=== PATIENT | male | born 1955 | race Caucasian/White ===

== ENCOUNTER 2023-09-26 14:54 | Emergency (ER) | payer MEDICARE, OTHER ==
[2023-09-26 16:09] LABS: #Basophils 0.1 10x3/uL (0.0-0.2); #Eosinphils 0.1 10x3/uL (0.0-0.5); #Monocytes 0.9 10x3/uL (0.0-1.1); #Neutrophils 14.9 10x3/uL (1.5-8.4); %Basophils 0.4 % (0.0-2.0); %Eosinophils 0.7 % (0.0-6.0); %Lymphocytes 3.8 % (18.0-47.0); %Monocytes 5.5 % (0.0-10.0); %Neutrophils 89.1 % (40.0-75.0); Hematocrit 38.3 % (38.8-50.0); Hemoglobin 12.6 g/dL (13.5-17.5); Mean Corpuscular HGB CONC 32.9 g/dL (32.0-36.0); Mean Corpuscular Volume 85.1 fl (81.2-95.1); Mean Platelet Volume 11.6 fl (7.4-10.4); Platelet Count 205 10x3/uL (150-450); RBC Distribution Width 15.1 % (11.5-14.5); White Blood Cell (WBC) Count 16.8 10x3/uL (3.5-10.5)
[2023-09-26 16:42] LABS: ALT (SGPT) 18 U/L (8-55); AST (SGOT) 29 U/L (5-34); Albumin 4.7 g/dL (3.4-4.8); Alkaline Phosphatase 135 U/L (40-110); Anion Gap 16 mmol/L (10-20); BUN (Urea Nitrogen) 13 mg/dL (8.4-25.7); Bilirubin, Total 0.5 mg/dL (0.2-1.2); Calc. Creatinine Clearance 0 mL/min (70-130); Calcium 9.1 mg/dL (7.8-10.44); Carbon Dioxide 25 mmol/L (23-31); Estimated GFR 67; Globulin 2.7 g/dL (2.4-3.5); Glucose 295 mg/dL (80-115); Magnesium 1.3 mg/dL (1.6-2.6); Potassium 4.3 mmol/L (3.5-5.1); Protein, Total 7.4 g/dL (5.8-8.1)
[2023-09-26 16:49] LABS: Troponin I 0.037 ng/mL (< 0.028)
[2023-09-26 16:54] LABS: Chloride 100 mmol/L (98-107); Sodium 137 mmol/L (136-145)
[2023-09-26 17:14] LABS: SARS-CoV-2 NAA Rapid Test Not Detected (NotDetected)
[2023-09-26] MEDS ORDERED: Magnesium 2 GM/50 ML BAG (IN WATER) ONE (17:19)
[2023-09-26] MEDS ORDERED: Vancomycin 1 GM VIAL ONE (17:19)
[2023-09-26] MEDS ORDERED: Cefepime 2 GM VIAL ONE (17:19)
[2023-09-26 17:50] LABS: Bilirubin Neg (Negative); Blood, Urine Negative (Negative); Clarity Clear (Clear); Glucose, Urine (Dipstick) Normal (Negative); Ketone, Urine Negative (Negative); Leukocyte Negative (Negative); Nitrite Negative (Negative); Protein, Urine (Dipstick) 30 mg/dl (Neg-Trace); Specific Gravity, Urine 1.015 (1.005-1.030); Urobilinogen Normal mg/dL (Less than 2)
[2023-09-26 18:22] LABS: Bacteria/HPF 1+ HPF (None Seen); CAUTI Indications for Culture Dysuria,urgency,freq; Mucous/LPF Rare LPF (<2+); RBC/HPF 0-3 HPF (0-3); Squamous Epithelial 0-3 HPF (0-3); WBC/HPF 0-3 HPF (0-3)
[2023-09-26 18:24] LABS: Urine Culture Reflex No No
[2023-09-26 19:42] LABS: Lactic Acid 2.7 mmol/L (0.5-2.2)
[2023-09-26 19:52] LABS: Troponin I 0.064 ng/mL (< 0.028)
== END 2023-09-27 02:30 | disposition short-term general hospital (02) ==
LOC: CSHERS 14:54
DX: A41.9 Sepsis, unspecified organism (principal); R79.89 Other specified abnormal findings of blood chemistry; J43.9 Emphysema, unspecified; E11.40 Type 2 diabetes mellitus with diabetic neuropathy, unspecified; I10 Essential (primary) hypertension; E11.65 Type 2 diabetes mellitus with hyperglycemia; Z87.891 Personal history of nicotine dependence
CPT/HCPCS: 0240U; 71045; 73630; 80053; 81001; 83605; 83735; 83880; 84484 ×2; 85025; 87040; 93005; 36415; 96361; 96365; 96366; 96367; 96375; J0692; J3370; J3475

== ENCOUNTER 2024-03-01 08:05 | Outpatient (CLI) | payer OTHER | END 2024-03-01 08:06 | disposition home or self-care (01) | LOC: CSHWCC 08:05 | PROVIDERS: ATTEND Preventive Medicine Undersea and Hyperbaric Medicine | DX: E11.621 Type 2 diabetes mellitus with foot ulcer (principal); L97.529 Non-pressure chronic ulcer of other part of left foot with unspecified severity | CPT/HCPCS: 99214; G0463 ==

== ENCOUNTER 2025-04-21 10:29 | Emergency (ER) | payer MEDICARE, OTHER ==
[2025-04-21] MEDS ORDERED: HYDROcodone/Acetaminophen 5/325 mg Tablet ONE (12:19)
[2025-04-21 12:47] LABS: Glucose, Urine (Dipstick) >=1000 mg/dL (Negative); Leukocyte Negative (Negative); Protein, Urine (Dipstick) 15 mg/dl (Neg-Trace); Specific Gravity, Urine 1.010 (1.005-1.030)
[2025-04-21 13:18] LABS: Bacteria/HPF None Seen HPF (None Seen); CAUTI Indications for Culture Pelvic or flank pain; RBC/HPF None Seen HPF (0-3); WBC/HPF None Seen HPF (0-3)
[2025-04-21 13:20] LABS: Urine Culture Reflex No No
== END 2025-04-21 14:55 | disposition home or self-care (01) ==
LOC: CSHERS 10:29
DX: M54.50 Low back pain, unspecified (principal); I10 Essential (primary) hypertension; E78.5 Hyperlipidemia, unspecified; E11.40 Type 2 diabetes mellitus with diabetic neuropathy, unspecified; Z87.891 Personal history of nicotine dependence; W19.XXXA Unspecified fall, initial encounter
CPT/HCPCS: 72131; 81001

== ENCOUNTER 2025-05-14 08:54 | Outpatient (CLI) | payer OTHER | END 2025-05-14 08:55 | disposition home or self-care (01) | LOC: CSHMRI 08:54 | PROVIDERS: ATTEND Family Medicine | DX: M51.360 Other intervertebral disc degeneration, lumbar region with discogenic back pain only (principal); M47.816 Spondylosis without myelopathy or radiculopathy, lumbar region; M48.061 Spinal stenosis, lumbar region without neurogenic claudication; M51.370 Other intervertebral disc degeneration, lumbosacral region with discogenic back pain only; M48.07 Spinal stenosis, lumbosacral region | CPT/HCPCS: 72148 ==